=== PATIENT | male | born 1995 | race African-American/Black ===

== ENCOUNTER 2021-04-10 13:45 | Emergency (ER) | payer OTHER, SELFPAY ==
[2021-04-10 13:49] VITALS: BP 128/73; PULSE 86; RESP 18; TEMP 36.7; O2SAT 100
--- NOTE | 2021-04-10 14:08 | ED.GENADULT ---
HPI - General Adult General Chief complaint: Urogenital-Male <Avery Brooks PA-C - Last Filed: 04/10/21 14:16> Stated complaint: Negative Discharge <Avery Brooks PA-C - Last Filed: 04/10/21 14:16> Time Seen by Provider: 04/10/21 13:51 <Avery Brooks PA-C - Last Filed: 04/10/21 14:16> Source: patient and RN notes reviewed <Avery Brooks PA-C - Last Filed: 04/10/21 14:16> Mode of arrival: ambulatory <Avery Brooks PA-C - Last Filed: 04/10/21 14:16> Limitations: no limitations <Avery Brooks PA-C - Last Filed: 04/10/21 14:16> History of Present Illness HPI narrative: Patient is a 25-year-old male who presents with burning with urination for the last day concern for STD denies other complaints presents in no distress <Avery Brooks PA-C - Last Filed: 04/10/21 14:16> Related Data Allergies/adverse reactions: Allergies Allergy/AdvReac Type Severity Reaction Status Date / Time No Known Allergies Allergy Mild Verified 07/27/10 21:56 <Avery Brooks PA-C - Last Filed: 04/10/21 14:16> Review of Systems Review of Systems: All systems reviewed & are unremarkable except as noted in HPI and below <Avery Brooks PA-C - Last Filed: 04/10/21 14:16> [facility] Social History Social History: Social History (Updated 04/10/21 @ 14:08 by Avery Brooks PA-C) Smoking status: Current every day smoker <Avery Brooks PA-C - Last Filed: 04/10/21 14:16> Exam Narrative: GENERAL: Well-appearing, well-nourished, and in no acute distress. HEAD: Normocephalic, atraumatic. EYES: PERRLA and EOMI. ENT: Nares clear, no rhinorrhea or epistaxis. Mucous membranes moist. CHEST: Clear to auscultation. No respiratory distress. No wheezes rales or rhonchi HEART: Regular rate and rhythm. No murmur heard. EXTREMITIES: Normal range of motion. No edema. SKIN: Warm, dry, no rash. NEURO: No focal deficits. Alert and oriented x3. Cranial nerves II through XII grossly intact. Normal speech and gait PSYCH: Normal mood and affect. <LOVE Goodman Last Filed: 04/10/21 14:16> Course Course Emergency Course: Patient will be tested and treated for STDs as requested will follow with primary care nontoxic-appearing no distress felt appropriate for outpatient reevaluation <LOVE Goodman Last Filed: 04/10/21 14:16> Vital Signs Vital signs: Vital Signs Temperature 98.0 F 04/10/21 13:49 Pulse Rate 86 04/10/21 13:49 Respiratory Rate 18 04/10/21 13:49 Blood Pressure 128/73 04/10/21 13:49 Pulse Oximetry 100 04/10/21 13:49 Temperature 98.0 F 04/10/21 13:49 Pulse Rate 86 04/10/21 13:49 Respiratory Rate 18 04/10/21 13:49 Blood Pressure 128/73 04/10/21 13:49 Pulse Oximetry 100 04/10/21 13:49 <LOVE Goodman Last Filed: 04/10/21 14:16> Medical Decision Making MDM Narrative Medical decision making narrative: Patient presented with current concern for STD in the room in no distress at this time afebrile nontoxic-appearing felt appropriate for outpatient reevaluation. Provided with reasons to return. Given primary care follow-up <LOVE Goodman Last Filed: 04/10/21 14:16> Vital Signs Vital Signs: Vital Signs Temperature 98.0 F 04/10/21 13:49 Pulse Rate 86 04/10/21 13:49 Respiratory Rate 18 04/10/21 13:49 Blood Pressure 128/73 04/10/21 13:49 Pulse Oximetry 100 04/10/21 13:49 Temperature 98.0 F 04/10/21 13:49 Pulse Rate 86 04/10/21 13:49 Respiratory Rate 18 04/10/21 13:49 Blood Pressure 128/73 04/10/21 13:49 Pulse Oximetry 100 04/10/21 13:49 <LOVE Goodman Last Filed: 04/10/21 14:16> Lab Data Labs: Lab Results 04/10/21 04/10/21 Range/Units 14:08 14:08 Urine Color Yellow (Yellow) Urine Appearance Clear (Clear) Urine pH 7.0 (5.0-9.0) Ur Specific [place] 1.023 (1.001-1.035) Urine
[2021-04-10] MEDS: cefTRIAXone 1 GM VIAL 0.5 GM IM (14:34)
--- NOTE | 2021-04-10 14:39 | PC.NURSE ---
Lidocaine used for Rocephin reconstitution.
[2021-04-10 14:47] LABS: Add Urine Microscopic? YES; Appearance Urine Clear (Clear); Bilirubin Urine Negative (Negative); Blood Urine Negative (Negative); Color Urine Yellow (Yellow); Glucose Urine UA Negative (Negative); Ketones Urine Negative (Negative); Leukocyte Esterase Ur Trace LEU/UL (Negative); Nitrate Urine Negative (Negative); Protein Urine 1+ mg/dL (Negative); Specific Grav Ur 1.023 (1.001-1.035)
[2021-04-10 15:02] LABS: RBC Urine 0-2 /hpf (0-2)
[2021-04-10 15:03] LABS: Squamous Epithelial Cell Urine Few /hpf (Few); WBC Urine 0-3 /hpf
== END 2021-04-10 14:52 | disposition home or self-care (01) ==
LOC: ANHED 14:23
PROVIDERS: Emergency Medicine Emergency Medical Services; Emergency Provider General Practice
DX: N34.2 Other urethritis (principal); F17.210 Nicotine dependence, cigarettes, uncomplicated
CPT/HCPCS: 81001; 87491; 87591; 96372; 99283; J0696

== ENCOUNTER 2023-11-17 14:39 | Emergency (ER) | payer OTHER, SELFPAY ==
[2023-11-17 14:59] VITALS: BP 144/89; PULSE 92; RESP 17; TEMP 36.7; O2SAT 98
--- NOTE | 2023-11-17 17:38 | ED.DENTAL ---
HPI - Dental/Oral General Chief complaint: Dental/Oral Stated complaint: recent mouth surgery, gums inflammed Time Seen by Provider: 11/17/23 16:55 Source: patient Mode of arrival: ambulatory Limitations: no limitations History of Present Illness HPI Narrative: This is a 28-year-old male who presents to the ED for chief complaint of dental pain ongoing intermittently for the past couple of weeks. Reports that he had multiple teeth pulled last week it is starting to get more pain to the front upper teeth. Denies fevers, chills, trismus, drooling. Related Data Allergies Allergy/AdvReac Type Severity Reaction Status Date / Time No Known Allergies Allergy Mild Verified 11/17/23 15:01 Review of Systems Review of Systems: All systems as dictated in [facility] Social History Social History (Updated 04/10/21 @ 14:08 by Avery Brooks, LOVE) Smoking status: Current every day smoker Exam Narrative: GENERAL: Well-appearing, well-nourished, and in no acute distress. HEAD: Normocephalic, atraumatic. EYES: PERRLA and EOMI. ENT: Poor dentition throughout. Several taking upper teeth. Erythema to the gums but no palpable or discrete abscess. Floor of the mouth intact. No trismus or drooling. Nares clear, no rhinorrhea or epistaxis. Mucous membranes moist. Oropharynx without tonsillar hypertrophy exudate or other lesions. NECK: Supple. No adenopathy or masses. CHEST: No respiratory distress. Clear to auscultation. No wheezes rales or rhonchi HEART: Regular rate and rhythm. No murmur heard. Normal peripheral pulses. ABDOMEN: Soft, nontender, nondistended, normal active bowel sounds. MSK: Normal range of motion. No edema. SKIN: Warm, dry, no rash. NEURO: Alert and oriented x3. No focal deficits. PSYCH: Normal mood and affect. Course Vital Signs Vital signs: Vital Signs Temperature 98.0 F 11/17/23 14:59 Pulse Rate 92 11/17/23 14:59 Respiratory Rate 17 11/17/23 14:59 Blood Pressure 144/89 H 11/17/23 14:59 Pulse Oximetry 98 11/17/23 14:59 Oxygen Delivery Room Air 11/17/23 14:59 Temperature 98.0 F 11/17/23 14:59 Pulse Rate 92 11/17/23 14:59 Respiratory Rate 17 11/17/23 14:59 Blood Pressure 144/89 H 11/17/23 14:59 Pulse Oximetry 98 11/17/23 14:59 Oxygen Delivery Room Air 11/17/23 14:59 MDM - Dental/Oral MDM Narrative Medical decision making narrative: This is a 28-year-old male who presents to the ED with chief complaint of dental pain. Vitals are normal. Exam shows multiple decayed teeth to the upper row. Poor dentition throughout. No obvious abscess. No evidence of deep space infection. Patient will be given prescription for Augmentin and Toradol. Encouraged to keep following up with his dentist as he will likely need to have more teeth pulled. Pt will be discharged in stable condition. Return precautions given and supportive measures discussed. Pt is understanding and agreeable with plan for discharge and follow-up with PCP. Discharge Plan Discharge Clinical Impression: Dental caries Patient Disposition: Home, Self-Care Condition: Stable Instructions: Antibiotic Form Additional Instructions: Your exam today shows multiple areas of tooth decay. It is very important that you follow-up with dentist to address this problem. Take Toradol for pain relief and to take Augmentin for possible infection. If you have any new or worsening symptoms please return to the ER for further evaluation. Prescriptions: New amoxicillin-pot clavulanate 875-125 mg tablet 1 tablet PO Q12H Qty: 14 0RF ketorolac 10 mg tablet 10 mg PO Q8H PRN (Reason: pain) Qty: 15 0RF Rx Instructions: maximum total duration of 5 days from all oral, intranasal, or parenteral formulations Follow-up/Referrals: UNKNOWN,DOCTOR [Primary Care Provider] - Stand Alone Forms: Work/School Release IP Time of Disposition: 17:44
[2023-11-17] MEDS: AMOXICILLIN/CLAVULANATE K 875-125 MG TAB 1 TABLET PO (17:54)
== END 2023-11-17 17:56 | disposition home or self-care (01) ==
PROVIDERS: Emergency Provider Physician Assistant
DX: K02.9 Dental caries, unspecified (principal); F17.210 Nicotine dependence, cigarettes, uncomplicated
CPT/HCPCS: 99283; A9270